=== PATIENT | male | born 1975 | race Caucasian/White ===

== ENCOUNTER 2016-08-27 21:42 | Emergency (ER) | payer BC ==
[2016-08-27 21:53] VITALS: RESP 18
[2016-08-27] MEDS ORDERED: LEVOFLOXACIN 500 MG (PREMIX) 500 MG/100 ML SOL IV ONE ×2 (22:09→22:10)
[2016-08-27] MEDS ORDERED: LEVOFLOXACIN 25 MG/ML SOL IV ONE (22:22)
[2016-08-27] MEDS ORDERED: SODIUM CHLORIDE 0.9% IV ONE (22:38)
[2016-08-27] MEDS ORDERED: LEVOFLOXACIN IV ONE (22:38)
[2016-08-27 23:19] VITALS: BP 165/87; PULSE 75; TEMP 98.9; O2SAT 99
== END 2016-08-27 23:06 | disposition short-term general hospital (02) ==
LOC: ED 21:42
DX: S05.52XA Penetrating wound with foreign body of left eyeball, initial encounter (principal); W22.8XXA Striking against or struck by other objects, initial encounter
CPT/HCPCS: 99284 ×2; J1956 ×2; 96365; 99291